=== PATIENT | female | born 1990 | race Caucasian/White ===

== ENCOUNTER 2024-01-16 16:50 | Emergency (ER) | payer SELFPAY ==
[~2024-01-16] VITALS: Ht 157.5 cm; Wt 52.2 kg
[2024-01-16 17:03] VITALS: O2SAT 98
== END 2024-01-16 19:00 | disposition left against medical advice (07) ==
LOC: ER 16:54
DX: R51.9 Headache, unspecified (principal); Z53.21 Procedure and treatment not carried out due to patient leaving prior to being seen by health care provider
CPT/HCPCS: A4606; A4663